=== PATIENT | female | born 1960 | race Caucasian/White ===

== ENCOUNTER → 2016-03-04 | Outpatient (CLI) | payer BC ==
[2015-09-04 14:45] VITALS: BP 130/79; PULSE 63
[~2016-03-04] MED LIST: ASPI81TA28 PO; ESTR10TA PV
[2016-03-04 13:54] VITALS: BP 155/89; PULSE 68; TEMP 36.8; O2SAT 96
--- NOTE | 2016-03-05 08:13 | Radiation Oncology Follow-Up ---
Radiation Oncology Follow-Up Date of Visit Mar 05, 2016. 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 Shelley is a 55-year-old female without a family history of breast cancer. Her mother however is at age 84 from ovarian cancer. Patient did undergo genetic testing and this was negative. The patient was undergoing bilateral screening mammograms with her most recent on 03/11/2015. This showed a loosely grouped microcalcifications in the middle one third of the lower outer right breast with spot magnification views recommended. Clusters of microcalcifications were seen in the upper outer posterior and lower inner middle one third of the left breast. These latter were possibly increased compared to prior mammograms and additional spot magnification views were also recommended for the left breast. On 04/01/2015 the patient underwent bilateral digital diagnostic mammograms and spot magnification CC and ML views of each breast. 2 loose groupings of round microcalcifications were seen within the right 6:00 middle one third of the breast in the upper outer anterior right breast. Within the left breast there was a 7 mm cluster of predominantly round microcalcifications in the upper outer posterior breast which appears to have been present on prior mammograms dating back to 2010. However in the upper inner middle one third of the left breast is a new 3.3 mm cluster of amorphous microcalcifications that was of indeterminate significance with biopsy recommended. On 04/10/2015 patient underwent a stereotactic biopsy of the upper inner quadrant left breast. This revealed ductal carcinoma in situ focal, non-comedo necrosis with nuclear grade 3 of 3. The microcalcifications were associated with the DCIS. The DCIS measured up to 0.3 cm on biopsy. No invasive carcinoma was seen. Estrogen receptors were negative and progesterone receptors were negative. Case: [id number]. Patiently subsequently was seen at [facility] for further evaluation and treatment recommendations. 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 Accession #: [id number]. The patient was seen by Dr. Naz Reyes. She ordered bilateral breast MRIs with without contrast that were performed on 04/23. In the left breast heterogeneous enhancement is seen at the 9:00 middle depth located 5 cm the nipple. The grouped fine calcifications seen on the prebiopsy mammograms spanned 5 mm. However there was focal enhancement surrounding the biopsy site measuring 1.8 cm. The right breast revealed no suspicious enhancement, mass or other abnormalities are noted and no right axillary adenopathy appreciated. No extramammary findings were appreciated. Dr. Reyes discussed treatment options including both mastectomy and breast conserving therapies. The patient wished to proceed with breast conserving therapy consisting of partial mastectomy. This was performed on 06/09/2015. The left partial mastectomy tissue confirmed residual ductal carcinoma in situ, high-grade with apocrine features. All margins were negative for DCIS. However the DCIS was within 1 mm from the superior margin. The extent of the DCIS was at least 2 mm. The architectural pattern was comedo and micropapillary. Necrosis was present central, expansive comedonecrosis. No sentinel nodes were sampled. Accession #: [id number]. A detailed review of all diagnostic mammograms and MRIs were performed. The question of the changes in the left upper outer quadrant were discussed. Changes had appeared to be present and unchanged for several years however the suggestion was made to consider a biopsy of this area. The patient has agreed and is scheduled for a biopsy of the upper outer quadrant of the left breast tomorrow 07/02/2015. We were asked to see the patient in referral to discuss with her the role of radiation. She underwent a CT simulation was found to be candidate for hypo-fractionation. She was treated from 07/09/2015 to 08/06/2015. She received 5130 cGy. Interim History She is not having difficulty with her breast over the past year. She denies any pain or discomfort. She has noted no masses and no changes of the axilla. She is up-to-date on mammography. She had a mammogram 11/19/2015. This showed expected postoperative changes in the left breast, without definite mammographic evidence of malignancy. A follow-up left mammogram with possible ultrasound is recommended to ensure stability in 6 months. In a right mammogram will be due at that time. 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 The polyp was removed and path report revealed a tubular adenoma with high- grade dysplasia and focal intramucosal adenocarcinoma. Specimen [id number]. Patient did not require any further treatment. She was seen at medical oncology and the PET scan was ordered. performed on 12/29/2015 and showed no FDG avid metastatic disease. A few small pulmonary nodules were noted recommended a repeat CT scan of the chest in 6 months. This has been ordered. 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 09/22/15 Oral: Symptoms: No Problems Respiratory: Symptoms: WNL Urinary: Symptoms: WNL Skin: Symptoms: No Problems Breast: Right Upper Arm Measurement: 26.4 Right Mid Arm Measurement: 22.3 Right Wrist Measurement: 15.3 Left Upper Arm Measurement: 26.5 Left Mid Arm Measurement: 21.8 Left Wrist Measurement: 15.1 Arm Dominence: Right Patient Cosmetic Evaluation: Good Staff Cosmetic Evalaluation: Good Physical Exam Vital Signs Date Time Temp Pulse Resp B/P Pulse Ox O2 Delivery O2 Flow Rate FiO2 03/04/16 13:54 36.8 68 14 155/89 96 General Appearance: no apparent distress Eyes: normal inspection, EOMI ENT: normal ENT inspection, hearing grossly normal Neck: no adenopathy, thyroid normal Respiratory/Chest: lungs clear, no respiratory distress, no accessory muscle use Breast: Examination reveals well-healed incision of the left breast. There are no masses or tenderness and no axillary adenopathy. She has no skin retractions or nipple changes. Using the [place] score cosmesis she has a good outcome. The right breast showed no masses or tenderness and no axillary adenopathy. Cardiovascular: regular rate, rhythm, no gallop, no murmur Abdomen: non tender, soft, no organomegaly Extremities: no pedal edema Neurologic/Psychiatric: no motor/sensory deficits, alert, normal mood/affect Skin: warm/dry Lymphatic: no adenopathy Additional Studies UNILATERAL LEFT DIGITAL DIAGNOSTIC MAMMOGRAM 3D/2D: 11/19/2015 CLINICAL HISTORY: 55-year-old woman with a history of left breast DCIS diagnosed 04/10/2015. She underwent left lumpectomy and also another left breast stereotactic biopsy performed 07/02/2015 for another cluster of calcifications more laterally within the left breast. This yielded benign pathology. Patient presents for first mammographic follow-up after radiation treatment in the left breast. Patient also reports a recent diagnosis of colon cancer in September 2015. Comparison is made to exams dated: 04/10/2015 mammogram, 04/01/2015 mammogram, mammogram, 03/08/2014 mammogram, 08/30/2011 mammogram, and 08/19/2010 mammogram - [facility]. FINDINGS: Left CC and MLO 2-D digital and tomosynthesis images and spot magnification left CC and ML views were obtained. The tissue of the left breast is heterogeneously dense, which may obscure small masses. The current study was also evaluated with the use of computer aided detection (CAD). A linear scar marker overlies the 11:00 through 1:00 axes of the anterior left breast. There is expected architectural distortion with associated surgical clips in the upper inner middle one third of the left breast, at the site of prior lumpectomy. There is mild diffuse skin thickening and trabecular edema of the left breast. There is a ole-shaped metallic biopsy marker in the upper outer middle to posterior left breast, at the site of the benign stereotactic biopsy. There are a few scattered round benign-appearing microcalcifications throughout the left breast. However, no new suspicious clustered microcalcifications are seen. No new suspicious mass or unexpected architectural distortion. IMPRESSION: ACR-BI-RADS CATEGORY 3: PROBABLY BENIGN Expected post-therapeutic changes in the left breast, without definite mammographic evidence of malignancy. A follow-up left mammogram with possible ultrasound is recommended to ensure stability in 6 months. Annual right mammography will be due at that time. Also consider additional annual surveillance with breast MRI, given the dense breasts and personal history of left breast cancer. These results and recommendations were discussed with the patient at the time of the exam. Approximately 10% of breast cancers are not detected with mammography. A negative mammographic report should not delay biopsy if a clinically suggestive mass is present. Lucy Weaver M.D. ay/:11/19/2015 13:13:27 Endoscopy Technician: Roxana SEYMOUR)(Moe), [facility] letter sent: Follow Up Recommended 3 BI-RADS Code: ACR-BI-RADS Category 3: Probably Benign Dictated by: Lucy Weaver MD Signed by: Lucy Weaver MD Assessment & Plan Plan: Continue regular follow-up with Dr. Hicks, Dr. Luther, and Dr. Reyes. She is scheduled for the follow-up CT scan of the chest. We asked her to return to our office in 1 year. She is scheduled for recheck mammography in April. She may call our office if she has any questions or concerns in the interim. Total Time In Follow-Up I spent 20 minutes speaking to the patient performing examination. I spent 15 minutes reviewing information and completing this note. Copy To Leobardo Hicks M.D.; Go Landa D.O.; Naz Reyes M.D.
== END | disposition home or self-care (01) ==
LOC: C.ONC 13:47
PROVIDERS: ATTEND Radiology Radiation Oncology
DX: Z08 Encounter for follow-up examination after completed treatment for malignant neoplasm (principal); Z92.3 Personal history of irradiation; Z85.3 Personal history of malignant neoplasm of breast

== ENCOUNTER → 2016-04-02 | Outpatient (CLI) | payer BC | END | disposition home or self-care (01) | LOC: C.PAPS 11:17 | PROVIDERS: ATTEND Obstetrics & Gynecology | DX: Z01.419 Encounter for gynecological examination (general) (routine) without abnormal findings (principal) ==

== ENCOUNTER → 2016-05-26 | Outpatient (CLI) | payer BC ==
--- NOTE | 2016-05-26 14:43 | MAMMOGRAPHY REPORT ---
BILATERAL DIGITAL DIAGNOSTIC MAMMOGRAM TOMOSYNTHESIS WITH CAD: 05/26/2016 CLINICAL HISTORY: 56-year-old woman with a personal history of left breast DCIS status post lumpecto my in May 2015. She presents one year after treatment for bilateral diagnostic mammograms. TECHNIQUE: Bilateral CC and MLO 2-D digital anterolisthesis at this images, spot magnification left CC and ML views were obtained. Current study was also evaluated with a Computer Aided Detection (CA D) system. COMPARISON: Comparison is made to exams dated: 11/19/2015 mammogram, 04/10/2015 mammogram, 04/10/2015 stereotactic biopsy, 04/01/2015 mammogram, 03/11/2015 mammogram, and 03/08/2014 mammogram - [facility]. BREAST COMPOSITION: The tissue of both breasts is heterogeneously dense, which may obscure small ma sses. FINDINGS: A linear scar marker overlies the 12:00 left breast. There is expected architectural dist ortion with associated surgical clips in the 11:00 to 12:00 left breast, at the site of prior lumpec zeb. There is a stable metallic biopsy marker in the upper outer posterior left breast. There are round and punctate microcalcifications scattered throughout the medial and superior left breast. S ome of these benign-appearing scattered calcifications are stable comparing to more remote mammogram s and therefore likely benign. None are clustered or have the morphology of the biopsy proven DCIS. However, another short interval follow-up diagnostic mammogram including spot magnification views is recommended to ensure longer stability. No obvious new mass, unexpected architectural distortion or developing asymmetry is seen bilaterally. There are a few loosely grouped and scattered punctat e microcalcifications in the right breast, stable compared to prior mammograms. IMPRESSION: ACR-BI-RADS CATEGORY 3: PROBABLY BENIGN 1. Expected posttreatment changes in the left breast, without definite mammographic evidence of mal ignancy. Another short interval follow-up (6 months) diagnostic mammogram including spot magnificat ion views is recommended to ensure longer stability of probably benign round and punctate microcalci fications scattered throughout the upper inner quadrant. 2. Stable mammographic appearance of the right breast, without mammographic evidence of malignancy. Advise follow-up in 1 year. These results and recommendations were discussed with the patient at the time of the exam. Approximately 10% of breast cancers are not detected with mammography. A negative mammographic repor t should not delay biopsy if a clinically suggestive mass is present. Lucy Weaver M.D. ay/:05/26/2016 14:20:56 Locomotive Boilermaker: Nahum BANUELOS(Kennedi)(Moe), [facility] letter sent: Follow Up Recommended 3 BI-RADS Code: ACR-BI-RADS Category 3: Probably Benign
== END | disposition home or self-care (01) ==
LOC: C.MAMM 12:54
PROVIDERS: ATTEND Physician Assistant Medical
DX: Z08 Encounter for follow-up examination after completed treatment for malignant neoplasm (principal); Z85.3 Personal history of malignant neoplasm of breast

== ENCOUNTER → 2016-07-27 | Outpatient (CLI) | payer BC ==
[~2016-07-27] MED LIST changes: +OPTIRAY 320 IV PRN
--- NOTE | 2016-07-27 10:01 | DIAGNOSTIC IMAGING REPORT ---
CT OF THE CHEST WITHOUT IV CONTRAST CLINICAL HISTORY: Indeterminate pulmonary nodules. Breast cancer. COMPARISON STUDY: PET/CT December 29, 2015. CT DOSE: 185.68 mGy.cm TECHNIQUE: Axial images of the chest were obtained without IV contrast. Images were reviewed in the axial, sagittal, and coronal planes. IV contrast was not administered for this examination. FINDINGS: No enlarged axillary, mediastinal or hilar lymph nodes are present. The size of the heart is normal. There is no pericardial effusion. Central airways are patent. There is no consolidation to suggest pneumonia. Lingular opacity as well as right middle lobe opacity favors scarring or atelectasis. A 6 cm subpleural nodule within the left lower lobe shown on image 218 of 296 is unchanged since prior PET/CT. This is similar to treatment planning CT of July 03, 2015. An adjacent 3 mm subpleural nodule shown image 217 is also unchanged. There are few small calcified granulomas within the lungs. There are no new pulmonary nodules. No pneumothorax or pleural effusion is present. There are no suspicious osseous lesions. Upper abdomen is unremarkable on this unenhanced exam. There is a calcified granuloma within the spleen. Postsurgical findings within the left breast are incidentally noted. IMPRESSION: 1. No change in two small subpleural left lower lobe nodules since CT of July 03, 2015. These are likely benign but a follow-up chest CT in one year to ensure stability is recommended. 2. No thoracic lymphadenopathy. Electronically signed by: Fortino Goldman M.D. 07/27/2016 9:59 AM Dictated Date/Time: 07/27/2016 9:51 AM
== END | disposition home or self-care (01) ==
LOC: C.CTS 08:48
PROVIDERS: ATTEND Colon & Rectal Surgery
DX: K63.5 Polyp of colon (principal)

== ENCOUNTER → 2017-01-27 | Day surgery (SDC) | payer BC ==
[2017-01-18 07:33] VITALS: BMI 22.0
[~2017-01-27] VITALS: Ht 160 cm; Wt 56.8 kg
[~2017-01-27] MED LIST changes: -ASPI81TA28 PO; +LIDOCAINE HCL 2% 2 ML VIAL (20MG/ML) ONE; -OPTIRAY 320 IV PRN; +PROPOFOL IV EMULSION 10 MG/ML 20 ML VIAL IV ONE; +SODIUM CHLORIDE 0.9% 500ML 500 ML IV ONE
[2017-01-27 12:41] VITALS: Ht 160 cm; Wt 56.8 kg
[2017-01-27 12:57] VITALS: TEMP 36.4
--- NOTE | 2017-01-27 13:00 | Endo History and Physical ---
History & Physical Date of Service: Jan 27, 2017. Chief Complaint: LARGE POLYP TATOOED RECHECK Referring Physician: DR. MOTT History of Present Illness 56 yo CF who presents for flexible sigmoidoscopy secondary to history of colon polyp. Past Medical History Cancer Past Surgical History Hx Cardiac Surgery: No Hx Internal Defibrillator: No Hx Pacemaker: No Hx Abdominal Surgery: Yes (APPY, X3) Hx of Implantable Prosthesis: No Hx Post-Op Nausea and Vomiting: No Hx Cancer Surgery: Yes (LT BREAST LUMPECTOMY) Hx Thoracic Surgery: No Hx Orthopedic: No Hx Urinary Tract Surgery: No Family History Polyp Social History Smoking Status: Never Smoker Hx Substance Use: No Hx Alcohol Use: Yes (OCCASIONALLY) Allergies Coded Allergies: Adhesives (Verified Allergy, Mild, Rash, itchy, 01/27/17) NO KNOWN DRUG ALLERGIES (Verified Allergy, Unknown, ., 01/27/17) Current Medications Reported Home Medications Medications Dose Route/Sig Max Daily Dose Days Date Category Vagifem (Estradiol Vaginal) 10 Mcg Tab 1 Tab PV 2XWK 09/08/15 Reported Vital Signs Weight (Kilograms): 56.82 Height (Feet): 5 Height (Inches): 3 Date Time Temp Pulse Resp B/P (MAP) Pulse Ox O2 Delivery O2 Flow Rate FiO2 01/27/17 12:57 36.4 66 16 140/92 (108) 96 Room Air Physical Exam General Appearance: WD/WN, no apparent distress Respiratory/Chest: Auscultation: breath sounds normal Cardiovascular: Heart Auscultation: RRR Abdomen: Bowel Sounds: normal Inspection & Palpation: soft, non-distended, no tenderness, guarding & rebound Assessment and Plan Assessment: 56 yo CF who presents for flexible sigmoidoscopy secondary to history of colon polyp. Plan: Proceed with colonoscopy.
--- NOTE | 2017-01-27 13:30 | GI REPORT ---
Procedure Date: 01/27/2017 12:43 PM Procedure: Colonoscopy Indications: High risk colon cancer surveillance: Personal history of colon cancer, Last colonoscopy: January 2016 Medicines: Monitored Anesthesia Care Complications: No immediate complications. Estimated Blood Loss: Estimated blood loss: none. Procedure: Pre-Anesthesia Assessment: - Prior to the procedure, a History and Physical was performed, and patient medications and allergies were reviewed. The patient's tolerance of previous anesthesia was also reviewed. The risks and benefits of the procedure and the sedation options and risks were discussed with the patient. All questions were answered, and informed consent was obtained. Prior Anticoagulants: The patient has taken no previous anticoagulant or antiplatelet agents. ASA Grade Assessment: II - A patient with mild systemic disease. After reviewing the risks and benefits, the patient was deemed in satisfactory condition to undergo the procedure. After I obtained informed consent, the scope was passed under direct vision. Throughout the procedure, the patient's blood pressure, pulse, and oxygen saturations were monitored continuously. The scope was introduced through the anus and advanced to the terminal ileum. After I obtained informed consent, the scope was passed under direct vision. Throughout the procedure, the patient's blood pressure, pulse, and oxygen saturations were monitored continuously.The colonoscopy was performed without difficulty. The patient tolerated the procedure well. The quality of the bowel preparation was good. The terminal ileum, the appendiceal orifice and the rectum were photographed. Findings: The perianal and digital rectal examinations were normal. A tattoo was seen in the sigmoid colon. The tattoo site appeared normal. Non-bleeding internal hemorrhoids were found during retroflexion. The hemorrhoids were small. Impression: - A tattoo was seen in the sigmoid colon. The tattoo site appeared normal. - Non-bleeding internal hemorrhoids. - No specimens collected. Recommendation: - Resume previous diet. - Continue present medications. - Repeat colonoscopy in 3 years for surveillance. - Return to primary care physician as previously scheduled. Hector Sims DO 01/27/2017 1:29:14 PM This report has been signed electronically. Note Initiated On: 01/27/2017 12:43 PM I attest to the content of the Intraoperative Record and orders documented therein, exceptions below
--- NOTE | 2017-01-27 13:35 | Discharge Instructions ---
Endoscopy Patient Instructions Date / Procedure(s) Performed Jan 27, 2017. Flex Sig Allergy Information Coded Allergies: Adhesives (Verified Allergy, Mild, Rash, itchy, 01/27/17) NO KNOWN DRUG ALLERGIES (Verified Allergy, Unknown, ., 01/27/17) Discharge Date / Findings Jan 27, 2017. Internal hemorrhoids Medication Instructions OK to resume all medications today as prescribed Reported Home Medications Medications Dose Route/Sig Max Daily Dose Days Date Category Vagifem (Estradiol Vaginal) 10 Mcg Tab 1 Tab PV 2XWK 09/08/15 Reported Provider Instructions Activity Restrictions - No exercising or heavy lifting for 24 hours. - Do not drink alcohol the day of the procedure. - Do not drive a car or operate machinery until the day after the procedure. - Do not make any important decisions or sign important papers in 24 hours after the procedure. Following Day: - Return to full activity which may include returning to work/school. Diet Start your diet with liquids and light foods (jello, soup, juice, toast). Then eat your usual diet if not nauseated. Treatment For Common After Affects For mild abdominal pain, bloating, or excessive gas: - Rest - Eat lightly - Lie on right side Follow-Up Information Follow-up with DR. MOTT as scheduled Anesthesia Information What You Should Know You have had a procedure that required some medicine to reduce anxiety and discomfort. This treatment is called moderate sedation. After receiving the treatment, you may be sleepy, but you will be able to breathe on your own. The effects of the treatment may last for several hours. Follow these instructions along with Activity/Diet recommendations noted above: * Do NOT do anything where dizziness or clumsiness would be dangerous. * Rest quietly at home today, then you can be up and about tomorrow. * Have a responsible person stay with you the rest of today. * You may have had an I.V. today. If so, you may take the dressing off later today. Recommendations Call your doctor if: * Trouble breathing * Continuous vomiting for more than 24 hours * Temperature above 101 degrees * Severe abdominal pain or bloating * Pain not relieved by pain medicine ordered * There is increased drainage or redness from any incision * A large amount of rectal bleeding greater than 2-3 tablespoons. (If you had a polyp/s removed or have hemorrhoids, a small amount of blood - from the rectum is to be expected.) * You have any unanswered questions or concerns. IN THE EVENT OF A SERIOUS EMERGENCY, GO TO THE NEAREST EMERGENCY ROOM Your discharge instructions were prepared by provider Hector Sims. Patient Instructions Signature Page Anny Shelley Patient (or Guardian) Signature/Date: I have read and understand the instructions given to me by my caregivers. Caregiver/RN/Doctor Signature/Date: The above-named patient and/or guardian has received patient instructions on this date. + Original Patient Signature Page (only) stays with chart. Please make copy for patient.
[2017-01-27 13:58] VITALS: BP 138/91; PULSE 55; O2SAT 96
--- NOTE | 2017-01-27 14:27 | Anesthesiology Progress Note ---
Anesthesia Post Op Note Date & Time Jan 27, 2017 at 14:26 Vital Signs Pain Intensity: 0 Vital Signs Past 12 Hours Date Time Temp Pulse Resp B/P (MAP) Pulse Ox O2 Delivery O2 Flow Rate FiO2 01/27/17 13:58 55 20 138/91 (107) 96 Room Air 01/27/17 13:43 70 20 119/83 (95) 97 Room Air 01/27/17 13:28 68 20 97/63 (74) 96 Room Air 01/27/17 12:57 36.4 66 16 140/92 (108) 96 Room Air Notes Mental Status: alert / awake / arousable, participated in evaluation Pt Amnestic to Procedure: Yes Nausea / Vomiting: adequately controlled Pain: adequately controlled Airway Patency, RR, SpO2: stable & adequate BP & HR: stable & adequate Hydration State: stable & adequate Anesthetic Complications: no major complications apparent
== END | disposition home or self-care (01) ==
LOC: C.GI 12:34
PROVIDERS: ATTEND Internal Medicine
DX: Z12.11 Encounter for screening for malignant neoplasm of colon (principal); Z85.038 Personal history of other malignant neoplasm of large intestine; K64.8 Other hemorrhoids; Z79.899 Other long term (current) drug therapy

== ENCOUNTER → 2017-02-16 | Outpatient (CLI) | payer BC ==
[~2017-02-16] MED LIST changes: -LIDOCAINE HCL 2% 2 ML VIAL (20MG/ML) ONE; -PROPOFOL IV EMULSION 10 MG/ML 20 ML VIAL IV ONE; -SODIUM CHLORIDE 0.9% 500ML 500 ML IV ONE
--- NOTE | 2017-02-16 10:28 | DIAGNOSTIC IMAGING REPORT ---
(CHEST) THORAX WITHOUT CT DOSE: 179.92 mGy.cm HISTORY: Pulmonary nodules. Follow-up. TECHNIQUE: Multiaxial CT images of the chest were performed without contrast. A dose lowering technique was utilized adhering to the principles of ALARA. COMPARISON: Chest CT 07/27/2016 and PET/CT 10/06/2015. FINDINGS: The central airways are patent. No pleural effusions. No pneumothorax. Punctate calcified granuloma within the right lung apex. No new focal lung consolidations. There are 2 adjacent subpleural nodules within the left lower lobe on image 210. These measure 6 mm and 3 mm in size. These remain unchanged. No new pulmonary nodules identified. No suspicious lytic or blastic osseous lesions. No mediastinal or hilar lymphadenopathy. The heart is borderline enlarged. The visualized liver, spleen, and adrenal glands are unremarkable. Multiple surgical clips seen within the left breast. IMPRESSION: Stable subcentimeter nodules within the left lower lobe as described above. No new pulmonary nodules. An additional [address] follow up is recommended to demonstrate 2 year stability. Electronically signed by: Rj Jean-Baptiste M.D. 02/16/2017 10:27 AM Dictated Date/Time: 02/16/2017 10:22 AM
== END | disposition home or self-care (01) ==
LOC: C.CTS 10:01
PROVIDERS: ATTEND Colon & Rectal Surgery
DX: R91.8 Other nonspecific abnormal finding of lung field (principal); K63.5 Polyp of colon

== ENCOUNTER → 2017-04-08 | Outpatient (CLI) | payer OTHER | END | disposition home or self-care (01) | LOC: C.PAPS 14:17 | PROVIDERS: ATTEND Obstetrics & Gynecology | DX: Z12.4 Encounter for screening for malignant neoplasm of cervix (principal) ==